=== PATIENT | female | born 1960 | race Two or more races ===

== ENCOUNTER 2023-06-02 09:49 | Emergency (ER) | payer OTHER ==
[~2023-06-02] VITALS: Ht 160 cm; Wt 59.0 kg
[2023-06-02] MEDS ORDERED: TENORMIN50 M1 PO (10:11)
== END 2023-06-02 12:12 | disposition home or self-care (01) ==
LOC: ER 09:49
DX: E86.0 Dehydration (principal); R30.0 Dysuria; I10 Essential (primary) hypertension

== ENCOUNTER 2024-06-11 10:45 | Outpatient (CLI) | payer OTHER ==
[~2024-06-11 10:45] MED LIST: TENORMIN50 M1 PO
== END 2024-06-11 10:48 | disposition home or self-care (01) ==
LOC: SONOGRAMA 10:45
DX: N64.4 Mastodynia (principal)